=== PATIENT | male | born 1960 | race Two or more races ===

== ENCOUNTER 2022-02-27 17:17 | Emergency (ER) | payer OTHER ==
[~2022-02-27] VITALS: Ht 167.6 cm; Wt 90.7 kg
[2022-02-27] MEDS ORDERED: AVAPRO75 MG (17:33)
[2022-02-27] MEDS ORDERED: JARDIANCE10 MG (17:33)
[2022-02-27] MEDS ORDERED: JENTADUETO 2.51 EAC2 (17:33)
[2022-02-27] MEDS ORDERED: ZOCOR20 MG (17:33)
== END 2022-02-27 20:27 | disposition left against medical advice (07) ==
LOC: ER 17:17
DX: Z53.21 Procedure and treatment not carried out due to patient leaving prior to being seen by health care provider (principal)